=== PATIENT | female | born 1975 | race American Indian/Alaskan Native ===

== ENCOUNTER 2018-12-01 06:16 | Day surgery (SDC) | payer OTHER ==
[2018-12-01] MEDS ORDERED: WATER FOR IRRIG STERILE IR ONE (07:12)
[2018-12-01] MEDS ORDERED: XYLOCAINE 2% INFILTRATI ONE (07:26)
[2018-12-01] MEDS ORDERED: DIPRIVAN 10 MG/ML IV ONE ×2 (07:27)
--- NOTE | 2018-12-01 07:27 | Anesthesia Day of Surgery ---
Anesthesia Day of Surgery - Day of Surgery Patient Examined: Yes Patient H&P Reviewed: Yes Patient is NPO: Yes
--- NOTE | 2018-12-01 07:27 | Anesthesia Consultation ---
Anesthesia Consult and Med Hx Date of service: 12/01/18 - Airway Anesthetic Teeth Evaluation: Good ROM Head & Neck: Adequate Mental/Hyoid Distance: Adequate Mallampati Class: Class II Intubation Access Assessment: Good - Pre-Operative Health Status ASA Pre-Surgery Classification: ASA1 Proposed Anesthetic Plan: MAC
[2018-12-01] MEDS ORDERED: NACL 0.9% 1000 ML 1,000 ML IV SCH (08:00)
--- NOTE | 2018-12-01 08:07 | Operative Report ---
Operative Report Operative Report: DOS 12/01/18 SURGEON: Tano Cervantes MD COLONOSCOPY REPORT PREOPERATIVE AND POSTOPERATIVE DIAGNOSIS: Screening colonoscopy DESCRIPTION OF PROCEDURE: The colonoscope was passed to the cecum as identified by the ileocecal valve and appendiceal orifice. Scope was carefully withdrawn. Retroflexion was unable to be performed in the rectum despite multiple attempts due to a very narrow rectal vault, therefore very careful exam in the anterograde view was performed in the rectum. At the end of procedure, the scope was cleaned using normal technique. Vital signs monitored continuously throughout. SEDATION: Provided by [facility]. Quality of the prep was limited COMPLICATIONS: None. ESTIMATED BLOOD LOSS: none FINDINGS: * Moderate to large amount of thick liquid stool throughout the entire colon. The area was lavaged extensively with careful suctioning of the contents, however even with this the colon prep was only adequate * Mild to moderate diverticulosis of the sigmoid colon with scattered small to medium diverticula * Enlarged anal papilla RECOMMENDATIONS: * Due to the quality of colon cleanse, recommend annual FIT testing and repeat colonoscopy in 5 years.
[2018-12-01 08:37] VITALS: BP 154/79
== END 2018-12-01 06:17 | disposition home or self-care (01) ==
LOC: GIO 06:16
PROVIDERS: ATTEND Student in an Organized Health Care Education/Training Program
DX: K57.30 Diverticulosis of large intestine without perforation or abscess without bleeding (principal); D50.9 Iron deficiency anemia, unspecified; K62.89 Other specified diseases of anus and rectum; Z98.890 Other specified postprocedural states; Z98.51 Tubal ligation status
CPT/HCPCS: 45378; 81025; J2704; J7030